=== PATIENT | male | born 1995 | race Caucasian/White ===

== ENCOUNTER 2024-05-28 13:19 | Emergency (ER) | payer OTHER ==
[~2024-05-28] VITALS: Ht 185.4 cm; Wt 88.5 kg
[2024-05-28] MEDS ORDERED: LISINOPRIL10 M1 PO (13:36)
[2024-05-28] MEDS ORDERED: ACETAMINOPHEN 325 MG TAB PO ONE (13:45)
[2024-05-28] MEDS ORDERED: SODIUM CHLORIDE 0.9% 1,000 ML IV ONE (13:45)
[2024-05-28] MEDS ORDERED: Ondansetron Hydrochloride 4 MG/2 ML VIAL IV ONE (13:45)
[2024-05-28 14:17] LABS: HEMATOCRIT 53.5 % (42.0-52.0); MEAN CELL VOLUME 86.3 fl (80.0-94.0); MEAN CORPUSCULAR HGB 29.4 pg (27.0-31.0); MEAN PLATELET VOLUME 11.1 fl (9.6-12.3); PLATELET COUNT AUTOMATED 165 10*3/uL (130-400); RED CELL DISTRI WIDTH 12.8 % (0-14.5); WHITE BLOOD COUNT 16.7 10*3/uL (4.8-10.8)
[2024-05-28 14:19] LABS: MANUAL DIFF REFLEX YES
[2024-05-28 14:31] LABS: BILIRUBIN 1+ (Negative); BLOOD Negative (Negative); CLARITY Clear (Clear); COLOR Dark Yellow (Yellow); GLUCOSE Negative (Negative); KETONE Trace (Negative); LEUKO ESTERASE Negative (Negative); NITRITE Negative (Negative); PH 5.5 (4.5-8.0); SPECIFIC GRAVITY >= 1.030 (1.001-1.030)
[2024-05-28 14:41] LABS: ATYPICAL LYMPHS 1 % (0-0); TOTAL CELLS COUNTED 100 #CELLS
[2024-05-28 14:42] LABS: PLATELET SUFFICIENCY NORMAL (NORMAL)
[2024-05-28 14:52] LABS: ALKALINE PHOSPHATASE 75 U/L (46-116); BUN 11 mg/dl (9-23); CHLORIDE 106 mmol/L (98-107); LIPASE 25 U/L (12-53); POTASSIUM 4.3 mmol/L (3.4-5.1); SGPT/ALT 27 U/L (5-49); TOTAL PROTEIN 8.3 gm/dL (6.0-8.0)
[2024-05-28 15:01] LABS: BACTERIA 1+; MUCOUS 2+
[2024-05-28] MEDS ORDERED: CIPRO500 MG PO (15:08)
[2024-05-28] MEDS ORDERED: Ondansetron4 MG PO (15:08)
== END 2024-05-28 15:13 | disposition home or self-care (01) ==
LOC: ED 13:19
PROVIDERS: Physician Assistant Medical
DX: K52.9 Noninfective gastroenteritis and colitis, unspecified (principal); Z20.822 Contact with and (suspected) exposure to COVID-19; I10 Essential (primary) hypertension